=== PATIENT | male | born 1955 | race Caucasian/White ===

== ENCOUNTER 2022-02-26 11:24 | Emergency (ER) | payer MEDICARE, OTHER ==
[~2022-02-26 11:24] MED LIST: ACETAMINOPHEN325 MG PO; ACID CONTROL150 MG PO; BENADRYL25 MG PO; COMPAZINE10 MG PO; FOLIC ACID1 MG PO; HYDROCODON-ACE1 EAC4 PO; LEXAPRO 10MG TA10 MG PO; LIPITOR 10MG TA10 MG PO; NEXIUM20 MG PO; NORCO 5-325 TA1 EACH PO; OPDIVO40 MG/4 ML PO; STOOL SOFTENER1 EACH PO; TYLENOL #31 EACH PO; XANAX0.5 MG PO; ZOFRAN4 MG PO
[2022-02-26 12:44] LABS: INFLUENZA A NAA NEGATIVE (NEGATIVE)
[2022-02-26 12:58] LABS: CORONAVIRUS 2019 SARS-COV-2 POSITIVE (NEGATIVE)
[2022-02-26] MEDS ORDERED: PAXLOVID 150-11 EACH PO (14:12)
[2022-02-26] MEDS ORDERED: PROVENTIL HFA6.7 GM INH (14:12)
[2022-02-26] MEDS ORDERED: MEDROL 4MG DOSEP4 MG PO (14:12)
== END 2022-02-26 14:28 | disposition home or self-care (01) ==
LOC: FER 11:24
PROVIDERS: Emergency Medicine
DX: U07.1 COVID-19 (principal)
CPT/HCPCS: 71045; 93005; U0002